=== PATIENT | male | born 1985 | race Two or more races ===

== ENCOUNTER 2023-05-21 09:26 | Day surgery (SDC) | payer MEDICARE, MEDICAID ==
[2023-05-16 10:59] LABS: Basophils # (auto) 0.1 10 ^3/uL (0-0.2); Eosinophils % (auto) 3.9 % (0.0-7.0); Hemoglobin 9.1 g/dL (13.5-17.5); Mean Corpuscular Hemoglobin 22.1 pg (28.0-32.0); Monocytes # (auto) 0.7 10 ^3/uL (0-1.3)
[2023-05-16 11:02] LABS: Basophils % (auto) 0.9 % (0.0-2.0); Eosinophils # (auto) 0.3 10 ^3/uL (0-0.8); Hematocrit 29.8 % (41.0-53.0); Mean Corpuscular Hgb Conc. 30.6 g/dL (32.0-36.0); Mean Corpuscular Volume 72.4 fL (80.0-100.0); Monocytes % (auto) 7.4 % (0.0-12.0); Neutrophils # (auto) 4.9 10 ^3/uL (1.6-8.6); Neutrophils % (auto) 54.8 % (37.0-80.0); Red Blood Cells 4.12 10^6/uL (4.5-5.90); Red Cell Distribution Width 18.1 % (11.8-14.3)
[2023-05-16 11:11] LABS: Urine Bacteria FEW /hpf (None Seen); Urine Blood TRACE /uL (Negative); Urine Clarity HAZY (Clear); Urine Color Colorless (Yellow); Urine Protein, UAD 1+ (Negative); Urine Specific Gravity 1.012 (1.001-1.035); Urine Urobilinogen Normal (Negative); Urine WBC 86 /hpf (0 - 3); Urine pH 6.5 (5.0-8.0)
[2023-05-16 11:20] LABS: INR 1.06 (0.9-1.15); Prothrombin Time 11.1 sec (9.3-11.8)
[2023-05-16 11:22] LABS: Alanine Aminotransferase 15 U/L (7-40); Albumin 3.5 g/dL (3.2-4.8); Alkaline Phosphatase 163 U/L (46-116); Anion Gap 8 (5-15); Aspartate Aminotransferase 18 U/L (13-40); BUN/Creatinine Ratio 9.2 (10.0-20.0); Bilirubin, Total 0.2 mg/dL (0.2-1.0); Blood Urea Nitrogen 15 mg/dL (9-23); Calcium 9.7 mg/dL (8.5-10.1); Carbon Dioxide 29 mmol/L (20-30); Chloride 101 mmol/L (98-107); Glucose 87 mg/dL (74-106); Potassium 3.9 mmol/L (3.5-5.1); Sodium 138 mmol/L (136-145); Total Protein 8.1 g/dL (5.7-8.2)
[~2023-05-21] VITALS: Ht 188 cm; Wt 90.7 kg
[~2023-05-21 09:26] MED LIST: METH10T PO
[2023-05-21] MEDS ORDERED: LIDOCAINE W/ EPINEPHRINE 1% 20ML VIAL ONE (12:09)
[2023-05-21] MEDS ORDERED: CIPROFLOXACIN 400MG/200ML 200 ML IV ONE (12:10)
[2023-05-21] MEDS ORDERED: fentaNYL CITRATE 100 MCG/2 ML VL ONE (12:18)
[2023-05-21] MEDS ORDERED: PROPOFOL 10 MG/ML 20 ML IV ONE (13:02)
[2023-05-21] MEDS ORDERED: ONDANSETRON HCL 4 MG/2 ML VIAL ONE (13:03)
[2023-05-21] MEDS ORDERED: DexAMETHasone SOD PHOS 10MG/1ML VIAL INJ ONE (13:03)
[2023-05-21] MEDS ORDERED: diphenhdrAMINE HCL 50 MG/1 ML VL ONE (13:04)
[2023-05-21 13:33] VITALS: RESP 13; TEMP 97.6; O2SAT 100
[2023-05-21] MEDS ORDERED: ONDANSETRON HCL 4 MG/2 ML VIAL IV PRN (13:45)
[2023-05-21] MEDS ORDERED: HYDROmorphone HCL 2 MG/ML VL/or syr IV PRN (13:45)
[2023-05-21 14:14] VITALS: BP 113/61; PULSE 78; RESP 11; O2SAT 98
== END 2023-05-21 15:50 | disposition home or self-care (01) ==
LOC: SUR 09:26
PROVIDERS: ATTEND Urology
DX: N31.9 Neuromuscular dysfunction of bladder, unspecified (principal); N31.2 Flaccid neuropathic bladder, not elsewhere classified; N36.8 Other specified disorders of urethra; R33.8 Other retention of urine; Z88.8 Allergy status to other drugs, medicaments and biological substances; Z98.890 Other specified postprocedural states
CPT/HCPCS: 36415; 51040; 80053; 81001; 85025; 85610; 85730; 87086; 87088; 87186; J0744; J1100; J1200; J2405; J2704; J3010